=== PATIENT | female | born 1995 | race African-American/Black ===

== ENCOUNTER 2022-04-13 19:05 | Inpatient (IN) | payer MEDICAID, OTHER ==
[~2022-04-13] VITALS: Ht 170.2 cm; Wt 113.4 kg
[~2022-04-13 19:05] MED LIST: ALBUTEROL; PROAIR; TYLENOL #3
[2022-04-13] MEDS ORDERED: SODIUM CHLORIDE 0.9% 1,000 ML IV ONE (19:45)
[2022-04-13 20:14] LABS: BASOPHILS % 0.1 % (0.0-2.0); EOSINOPHILS % 1.2 % (0.0-5.0); HEMATOCRIT. 27.6 % (36.0-48.0); HEMOGLOBIN. 9.4 g/dL (12.0-16.0); LYMPHOCYTES % 9.8 % (20.0-50.0); MEAN CORPUSCULAR VOLUME 70.7 fL (81.0-99.0); MEAN PLATELET VOLUME 8.7 fl (7.4-10.4); MONOCYTES % 6.6 % (2.0-8.0); NEUTROPHILS % 82.3 % (40.0-76.0); PLATELET 120 x1000/uL (130-400); RED CELL DISTRIBUTION WIDTH 22.7 % (11.6-14.6)
[2022-04-13 20:34] LABS: CHLORIDE 108 mEq/L (98-107)
[2022-04-13 20:55] LABS: B-HCG QUANTITATIVE 45843 mIU/mL (<3)
[2022-04-13] MEDS ORDERED: MORPHINE SULFATE 4 MG/ML CPJ (NOT FOR IM USE) IV ONE (22:00)
[2022-04-14] VITALS: BP_SYST 118; BP_SYST 130; BP_DIAS 64; BP_DIAS 90
[2022-04-14] MEDS ORDERED: KETOROLAC 60MG/2ML VIAL IM NR (00:15)
[2022-04-14] MEDS: HYDROMORPHONE HCL/PF 2MG/ML CPJ IV NR ×2 (00:45→05:00)
[2022-04-14 00:49] LABS: PLATELET ESTIMATE SLIGHTLY DECREASED
[2022-04-14 02:00] VITALS: BP 117/62
[2022-04-14 04:00] VITALS: BP 117/62
[2022-04-14] MEDS ORDERED: MISOPROSTOL 200MCG TABLET PO SCH (04:00)
[2022-04-14] MEDS ORDERED: IBUP-2030 MT (07:55)
[2022-04-14] MEDS ORDERED: MULT-1116 MT (07:55)
[2022-04-14] MEDS ORDERED: METH PO (07:55)
[2022-04-14] MEDS ORDERED: FERR325T6 MT (07:55)
[2022-04-14 08:00] VITALS: BP 112/69
[2022-04-14 11:24] VITALS: BP 118/66
[2022-04-14 12:00] VITALS: BP 118/66
== END 2022-04-14 11:52 | disposition home or self-care (01) | DRG 564 ==
LOC: ER 19:05 → 6EST 21:52 → ENRESERV 23:42
PROVIDERS: ADMIT Specialist; ATTEND Specialist
DX: O02.1 Missed abortion (principal); D57.1 Sickle-cell disease without crisis; O99.012 Anemia complicating pregnancy, second trimester; O99.212 Obesity complicating pregnancy, second trimester; Z3A.18 18 weeks gestation of pregnancy; Z82.49 Family history of ischemic heart disease and other diseases of the circulatory system; Z83.3 Family history of diabetes mellitus; Z82.3 Family history of stroke
CPT/HCPCS: 36415; 76805; 80053; 84702; 85025; 86850; 86900; 88307; 88309; 99291; J1170; J1885; J2270; J7030